=== PATIENT | male | born 2000 | race Caucasian/White ===

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

== ENCOUNTER 2019-02-26 16:57 | Emergency (ER) | payer OTHER ==
[~2019-02-26] VITALS: Ht 165.1 cm; Wt 59.1 kg
[2019-02-26 17:06] VITALS: TEMP 98.8
[2019-02-26] MEDS ORDERED: PRINIVIL2.5 MG PO (17:10)
[2019-02-26 17:41] LABS: COLLECTION METHOD CLEAN CATCH
[2019-02-26 17:45] LABS: BASO # 0.1 (0.0-0.2); BASO % 0.5 % (0.0-2.0); EOS # 0.1 (0.0-0.7); EOS % 0.5 % (0-4.0); HEMATOCRIT 43.9 % (36.0-47.0); HEMOGLOBIN 15.3 g/dl (12.5-16.1); LYMPH # 2.5 (1.2-3.4); LYMPH % 26.1 % (20.0-51.0); MEAN CELL VOLUME 93 fl (80.0-95.0); MEAN CORPUSCULAR HEMOGLOBIN 33 pg (26.0-32.0); MEAN CORPUSCULAR HGB CONC 35 g/dl (33.0-37.0); MEAN PLATELET VOLUME 10.7 fl (7.4-10.4); MONO # 0.8 (0.1-0.6); MONO % 8.7 % (1.7-9.3); PLATELET COUNT 238 K/mm3 (130-400); REDCELL DISTRIBUTION WIDTH-CV 12.1 % (11.5-14.5)
[2019-02-26 17:55] LABS: PH 6 (5-8); SQUAMOUS EPITHELIAL None Seen /hpf; URINE APPEARANCE Hazy; URINE BACTERIA None Seen /hpf; URINE BILIRUBIN Negative (NEGATIVE); URINE BLOOD 3+ (NEGATIVE); URINE COLOR Yellow; URINE GLUCOSE Negative (NEGATIVE); URINE KETONE Negative (NEGATIVE); URINE LEUKOCYTE ESTERASE Negative (NEGATIVE); URINE NITRATE Negative (NEGATIVE); URINE PROTEIN(semi-quant) 2+ (NEGATIVE); URINE RBC >50 /hpf; URINE UROBILINOGEN Negative (NEGATIVE)
[2019-02-26 17:58] LABS: ALANINE AMINOTRANSFERASE 16 U/L (21-72); ALBUMIN 4.4 gm/dL (3.5-5.0); ALKALINE PHOSPHATASE 78 U/L (50-136); ANION GAP 10 mmol/L (7-16); AST,SGOT 35 U/L (15-37); BILIRUBIN,TOTAL 0.6 mg/dL (0.0-1.0); BLOOD UREA NITROGEN 15 mg/dL (9-20); CALCIUM 9.5 mg/dL (8.4-10.2); CARBON DIOXIDE 26 mmol/L (22-30); CHLORIDE 104 mmol/L (98-107); CREATININE, serum 0.85 (0.66-1.25); GLUCOSE 98 mg/dL (74-106); POTASSIUM 4.2 mmol/L (3.4-5.0); SODIUM 139 mmol/L (137-145); TOTAL PROTEIN 7.4 gm/dL (6.4-8.2)
[2019-02-26 18:14] LABS: C-REACTIVE PROTEIN < 0.5 mg/dL (0.0-0.9)
[2019-02-26] MEDS ORDERED: CEFTIN 250250 MG/TAB PO (19:14)
[2019-02-26 19:50] VITALS: BP 111/72; PULSE 49
== END 2019-02-26 19:51 | disposition home or self-care (01) ==
LOC: COL.ER 16:57
PROVIDERS: Emergency Medicine; Nurse Practitioner
DX: R31.9 Hematuria, unspecified (principal); Z90.49 Acquired absence of other specified parts of digestive tract
CPT/HCPCS: A4216; J0696; J7030

== ENCOUNTER 2020-09-11 05:52 | Outpatient (CLI) | payer OTHER ==
[2020-09-11] VITALS (23 sets, daily range): BP systolic 98–120; BP diastolic 52–77; PULSE 47–76; TEMP 98.1
[~2020-09-11] VITALS: Ht 170.3 cm; Wt 60.9 kg
[~2020-09-11 05:52] MED LIST changes: +CEFTIN 250250 MG/TAB PO; +PRINIVIL2.5 MG PO
[2020-09-11] MEDS ORDERED: PRINIVIL2.5 MG PO (06:53)
[2020-09-11 07:24] LABS: HEMATOCRIT 46.2 % (42.0-52.0); HEMOGLOBIN 16.3 g/dl (13.5-18.0); MEAN CELL VOLUME 92 fl (80.0-100.0); MEAN CORPUSCULAR HEMOGLOBIN 33 pg (27.0-31.0); MEAN CORPUSCULAR HGB CONC 35 g/dl (33.0-37.0); MEAN PLATELET VOLUME 10.2 fl (7.4-10.4); PLATELET COUNT 267 K/mm3 (130-400); RED BLOOD COUNT 5.02 M/mm3 (4.20-5.60); REDCELL DISTRIBUTION WIDTH-CV 12.4 % (11.5-14.5)
[2020-09-11 07:34] LABS: INR 1.1 (0.8-3.0); PROTHROMBIN TIME 12.1 SECONDS (9.7-12.8)
[2020-09-11 07:37] LABS: PARTIAL THROMBOPLASTIN TIME 33.5 SECONDS (26.0-37.0)
[2020-09-11 08:06] LABS: LYMPHOCYTE 36 % (20.0-51.0); METAMYELOCYTE 2 % (0-0); MYELOCYTE 3 % (0-0); NEUTROPHILS 44 % (42.0-75.2)
--- NOTE | 2020-09-11 08:48 | NUR ---
Pt to Radiology.
--- NOTE | 2020-09-11 08:55 | NUR ---
[id number] BX BY DR HENSLEY [id number] BY DR HENSLEY
--- NOTE | 2020-09-11 09:23 | NUR ---
Pt returned from procedure.
--- NOTE | 2020-09-11 15:35 | NUR ---
DISCHARGE INSTRUCTIONS GIVEN TO PT.PT VERBALIZES UNDERSTANDING.INT REMOVED,CATHETER TIP INTACT.PT ESCORTED OUT BY THIS NURSE/
== END 2020-09-11 17:17 | disposition home or self-care (01) ==
LOC: COL.RAD
PROVIDERS: Radiology Diagnostic Radiology
DX: R80.9 Proteinuria, unspecified (principal)
CPT/HCPCS: J2250; J3010

== ENCOUNTER → 2020-09-18 | Outpatient (CLI) | payer OTHER | LOC: COL.RAD 11:30 | DX: S37.019A Minor contusion of unspecified kidney, initial encounter (principal) ==